=== PATIENT | female | born 1955 | race Two or more races ===

== ENCOUNTER 2019-01-19 19:14 | Emergency (ER) | payer OTHER ==
[~2019-01-19] VITALS: Ht 170.2 cm; Wt 72.6 kg
--- NOTE | 2019-01-19 20:08 | Diagnostic Imaging Report ---
EXAM: CT Head Without Intravenous Contrast CLINICAL HISTORY: TRAUMA TECHNIQUE: Axial computed tomography images of the head/brain without intravenous contrast. CTDI is 60.0 mGy and DLP is 1244.20 mGy-cm. One or more of the following dose reduction techniques were used: automated exposure control, adjustment of the mA and/or kV according to patient size, use of iterative reconstruction technique. COMPARISON: No relevant prior studies available. FINDINGS: Brain: No acute infarct, hemorrhage, mass or edema. No significant white matter disease. Ventricles: Unremarkable. No ventriculomegaly. Bones/joints: Mild mucosal thickening in the paranasal sinuses with reactive hyperostosis within the right maxillary antrum suggesting chronic sinusitis. No acute fracture. Soft tissues: Unremarkable. Sinuses: See above. Mastoid air cells: Unremarkable as visualized. No mastoid effusion. IMPRESSION: No acute findings in the head/brain.
[2019-01-19] MEDS ORDERED: IBUPROFEN600 MG ORAL (20:13)
--- NOTE | 2019-01-19 20:13 | Emergency Room Report ---
History of Present Illness General Chief Complaint: Multiple Trauma/Fall Source: Patient Present Illness HPI 63-year-old Swiss-speaking female with no significant past medical history other than diabetes type 2 and hypertension both controlled by paramedics due to fall and hitting her head at work. Patient reports that the patient and she fell backwards and hit her head to the ground. Patient is rating the pain 10 out of 10 pointing to the occipital and right parietal lobe. Complains of dizziness however denies blurred vision, nausea vomiting. Has not taken medication for pain. Has been applying ice to the affected area. Patient denies feeling dizzy or any chest pain prior to fall. Patient reports that she tried to reach for something at work and she missed a step and ended up falling from the back of her head. Denies all other injuries, memory loss. Patient is speaking. This is, and neurological and motor deficits are not noted. Allergies: Coded Allergies: PENICILLINS (Verified Allergy, Unknown, 01/19/19) Patient History Past Medical History: see triage record Past Surgical History: unable to obtain Pertinent Family History: none Last Menstrual Period: n/a Now: No Immunizations: UTD Reviewed Nursing Documentation: PMH: Agreed; PSxH: Agreed Nursing Documentation-PMH Past Medical History: No History, Except For Hx Hypertension: Yes Hx Diabetes: Yes Review of Systems All Other Systems: negative except mentioned in HPI Physical Exam Vital Signs Date Time Temp Pulse Resp B/P (MAP) Pulse Ox O2 Delivery O2 Flow Rate FiO2 01/19/19 19:10 97.7 88 18 133/68 (89) 98 Room Air Sp02 EP Interpretation: reviewed, normal General Appearance: no apparent distress, alert, GCS 15, non-toxic Head: normocephalic, other - Head contusion noted Eyes: bilateral eye normal inspection, bilateral eye PERRL ENT: normal ENT inspection, hearing grossly normal, EOM grossly intact Neck: normal inspection, full range of motion, supple, thyroid normal, no meningismus, no bony tend Respiratory: chest non-tender, lungs clear, normal breath sounds, no rhonchi, no respiratory distress, no retraction, speaking full sentences Cardiovascular #1: regular rate, rhythm, no edema, no murmur Gastrointestinal: normal bowel sounds, non tender, soft, non-distended, no guarding, no rebound Genitourinary: no CVA tenderness Musculoskeletal: back normal, normal range of motion Neurologic: alert, motor strength/tone normal, oriented x3, sensory intact, responsive, speech normal Psychiatric: judgement/insight normal, memory normal, mood/affect normal, no suicidal/homicidal ideation Skin: no rash Lymphatic: no adenopathy Medical Decision Making PA Attestation All my diagnosis and treatment plans were reviewed ad discussed with my supervising physician Dr. Estevez Diagnostic Impression: Primary Impression: Head contusion ER Course 63-year-old [place]-speaking female with no significant past medical history other than diabetes type 2 and hypertension both controlled by paramedics due to fall and hitting her head at work. Patient reports that the patient and she fell backwards and hit her head to the ground. Patient is rating the pain 10 out of 10 pointing to the occipital and right parietal lobe. Complains of dizziness however denies blurred vision, nausea vomiting. Has not taken medication for pain. Has been applying ice to the affected area. Patient denies feeling dizzy or any chest pain prior to fall. Patient reports that she tried to reach for something at work and she missed a step and ended up falling from the back of her head. Denies all other injuries, memory loss. Patient is speaking. This is, and neurological and motor deficits are not noted. Ddx considered but are not limited to: cerebral hematoma, concussion, skull fracture, head contusion Vital signs: are WNL, pt. is afebrile H&PE are most consistent with: Head contusion ORDERS: head CT no contrast, Motrin ED INTERVENTIONS: Tylenol prior to his pain, Toradol was given after CT scan confirmed no intracranial hemorrhage DISCHARGE: At this time pt. is stable for d/c to home. Will provide printed patient care instructions, and any necessary prescriptions. Care plan and follow up instructions have been discussed with the patient prior to discharge. Patient to follow with her primary care provider. If worsening symptoms return to the emergency room CT/MRI/US Diagnostic Results CT/MRI/US Diagnostic Results : Imaging Test Ordered: Head CT no contrast Impression No hemorrhage, no skull fracture Last Vital Signs Date Time Temp Pulse Resp B/P (MAP) Pulse Ox O2 Delivery O2 Flow Rate FiO2 01/19/19 19:30 88 18 Room Air 01/19/19 19:10 97.7 133/68 (89) 98 Disposition: HOME, SELF-CARE Condition: Stable Scripts Ibuprofen* (MOTRIN*) 600 Mg Tablet 600 MG ORAL Q8H PRN for For Pain, #30 TAB 0 Refills Prov: Harrison Martinez 01/19/19 Referrals: NOT CHOSEN IPA/,REFERRING (PCP) Patient Instructions: Facial or Scalp Contusion, [id number] Additional Instructions: Take medication as directed, follow-up with your primary care provider, if worsening symptoms return to the emergency room Harrison Martinez Jan 19, 2019 20:13
[2019-01-19] MEDS ORDERED: Ketorolac 30mg Inj IM ONE (20:15)
[2019-01-19 20:45] VITALS: BP_SYST 129; BP_SYST 133; BP_DIAS 68; BP_DIAS 74
== END 2019-01-19 20:45 | disposition home or self-care (01) ==
LOC: EDBD 19:14 → EMR 19:36
DX: S00.93XA Contusion of unspecified part of head, initial encounter (principal); W19.XXXA Unspecified fall, initial encounter; Y92.9 Unspecified place or not applicable; Z88.0 Allergy status to penicillin; E11.9 Type 2 diabetes mellitus without complications; I10 Essential (primary) hypertension
CPT/HCPCS: 70450; 96372; 99284; J1885